=== PATIENT | female | born 1955 | race Caucasian/White ===

== ENCOUNTER → 2017-01-02 | Outpatient (CLI) | payer BC ==
[~2017-01-02] MED LIST: GADOBUTROL 10 ML VIAL IVP ONE
== END ==
LOC: FIMAGING 14:15
PROVIDERS: ATTEND Psychiatry & Neurology Neurology
DX: G35 Multiple sclerosis (principal); M48.02 Spinal stenosis, cervical region; M50.321 Other cervical disc degeneration at C4-C5 level
CPT/HCPCS: A9585

== ENCOUNTER → 2017-03-06 | Outpatient (CLI) | payer BC | LOC: FIMAGING 13:13 | PROVIDERS: ATTEND Obstetrics & Gynecology | DX: Z12.31 Encounter for screening mammogram for malignant neoplasm of breast (principal) | CPT/HCPCS: G0202 ==

== ENCOUNTER 2018-06-16 11:31 | Observation (INO) | payer OTHER ==
--- NOTE | 2018-06-16 11:45 | EDPHY ---
H & P Stated Complaint: CP starting last night Time Seen by Provider: 06/16/18 11:39 - Personal History Tetanus Vaccine Date: 2003 - Medical/Surgical History Hx Asthma: No Hx Chronic Respiratory Disease: No Hx Diabetes: No Hx Cardiac Disease: No Hx Renal Disease: No Hx Cirrhosis: No Hx Alcoholism: No Hx HIV/AIDS: No Hx Splenectomy or Spleen Trauma: No Other PMH: MS, SETH, POTS, HTN, hyperlipidemia - Social History Smoking Status: Never smoked Constitutional: Initial Vital Signs Temperature (C) 36.5 C 06/16/18 11:35 Heart Rate 104 H 06/16/18 11:35 Respiratory Rate 18 06/16/18 11:35 Blood Pressure 176/116 H 06/16/18 11:35 O2 Sat (%) 98 06/16/18 11:35 O2 Delivery Mode Room Air Allergies/Adverse Reactions: metoclopramide [Metoclopramide] Allergy (Severe, Verified 06/16/18 11:33) PSYCHOSIS natalizumab [From TYSABRI] Allergy (Severe, Verified 06/16/18 11:33) DYSPNEA, SYNCOPE, ABNORMAL VITAL SIGNS Butyrophenones Allergy (Intermediate, Verified 06/16/18 11:33) RASH/HIVES levofloxacin [From Levaquin] Allergy (Intermediate, Verified 06/16/18 11:33) Hives interferon beta-1a [From Rebif] Allergy (Mild, Verified 06/16/18 11:33) DECR WBC COUNT cefepime Allergy (Unknown, Verified 06/16/18 13:46) Other-Enter Comments Influenza Virus Vaccines [Influenza Virus Vaccine] Allergy (Unknown, Verified 11:33) interferon muriel (human leuk. derive [Interferon Muriel] Allergy (Unknown, Verified 06/16/18 11:33) DECR WBC COUNT glatiramer acetate [From Copaxone] Allergy (Verified 06/16/18 11:33) SOB & RACING HEART latex [Latex] Allergy (Verified 06/16/18 11:33) CRAIG SKIN Quinolones Allergy (Verified 06/16/18 11:33) Hives sulfamethoxazole [From Septra] Allergy (Verified 06/16/18 11:33) trimethoprim [From Septra] Allergy (Verified 06/16/18 11:33) PAPER TAPE Allergy (Uncoded 06/16/18 11:33) Hives Home Medications: Medication Instructions Recorded Calcium Carbonate [Oyster Shell 1,000 - 1,500 mg PO DAILY 03/20/12 Calcium 500 mg (*)] Cholecalciferol Vit D3 [Vitamin D3 5,000 units PO HS 03/20/12 (*)] DULoxetine [Cymbalta 60 MG (*)] 60 mg PO DAILY 03/20/12 Diazepam [Valium 5 MG (*)] 5 mg PO QID PRN 03/20/12 Docusate Sodium [Colace 100 MG (*)] 100 mg PO DAILY 03/20/12 LORazepam [Ativan (*)] 1 - 2 mg PO DAILY PRN 03/20/12 Levothyroxine [Synthroid 75 mcg 75 mcg PO DAILY06 03/20/12 (*)] MAGNESIUM [Magnesium Oxide 200 mg] 2 - 3 tab PO DAILY 03/20/12 Metoprolol Tartrate [Lopressor 25 12.5 - 25 mg PO DAILY PRN 03/20/12 mg (*)] [place]-3 Fatty Acids/Fish Oil 1,000 units PO HS 03/20/12 [[place] 3 1,000 mg Softgel] Pyridostigmine [place] [Mestinon 180 mg PO HS 03/20/12 Timespan] fentaNYL [Duragesic 50 MCG Patch 50 mcg TD Q72H 03/20/12 (*)] Atorvastatin Calcium [Lipitor 10 10 mg PO HS 06/16/18 mg (*)] DULoxetine [Cymbalta 30 MG (*)] 30 mg PO HS 06/16/18 clonIDINE [Catapres (*)] 0.1 mg PO DAILY@06/16/18 oxyCODONE HCL [Oxycodone HCl] 5 mg PO Q6H PRN 06/16/18 Medical Decision Making - Diagnostics Imaging Results: Imaging Impressions Chest X-Ray 06/16/18 12:43 Impression: 1. No active cardiopulmonary disease seen. Imaging: I viewed and interpreted images myself ED Course/Re-evaluation: CHIEF COMPLAINT: Chest pain HISTORY OF PRESENT ILLNESS: The patient is a 62 y/o female with a history of MS, POTS, and hypertension complaining of chest pain, onset at midnight last night, 12 hours ago. She had a calcium scan several years ago, which was "fine". She denies any further cardiac work up. Staring in October of this year she developed hypertension and hypercholesteremia. She normally feels lethargic towards the end of the week due to MS and tends to lie around a lot. However, last night she felt "hyper" and developed substernal chest pain. Due to these symptoms she took Valium and was able to sleep. She did not have any pain while sleeping. When she woke up this morning, she still had chest pain associated with mild shortness of breath , nausea, and dizziness. She occasionally has shortness of breath due to the MS , but the symptoms feel different today. No headache, abdominal pain, urinary or bowel complaints, numbness, paresthesias, fever. Her father of an OR at 61. Her mother also had atrial fibrillation and due to an OR or stroke. Her siblings do not have any cardiac problems. Her grandfathers in their early 50's from a stroke and OR. REVIEW OF SYSTEMS: A comprehensive 10 system review of systems is otherwise negative aside from the elements mentioned in the history of present illness and medical decision making. PHYSICAL EXAM: HR, BP, O2 Sat, RR. Temp noted General Appearance: Alert, well hydrated, appropriate, and non-toxic appearing. Head: Atraumatic without scalp tenderness or obvious injury Eyes: Pupils equal, round, reactive to light and accommodation, EOMI, no trauma , no injection. Ears: Clear bilaterally, no perforation, normal landmarks Nose: Atraumatic, no rhinorrhea, clear. Throat: There is no erythema or exudates, no lesions, normal tonsils, mucus membranes moist. Neck: Supple, nontender, no lymphadenopathy. Respiratory: No retractions, no distress, no wheezes, and no accessory muscle use. Lungs are clear to auscultation bilaterally. Cardiovascular: Tachycardia with premature atrial contractions, no murmurs, rubs, or gallops. Bilateral carotid, radial, dorsalis pedis, and posterior tibial pulses intact. Good capillary refill all extremities. Gastrointestinal: Abdomen is soft, nontender, non-distended, no masses, no rebound, no guarding, no peritoneal signs. Musculoskeletal: Normal active ROM of all extremities, atraumatic. Neurological: Alert, appropriate, and interactive. The patient has normal DTRs and non-focal cranial nerves, motor, sensory, and cerebellar exam. Skin: No rashes, good turgor, no nodules on palpation. Past medical history: MS, SETH, POTS, hypertension, hyperlipidemia Past surgical history: Denies Family history: Father and grandfather of OR, mother had A-fib Social history: Lives in [place], at bedside, not employed DIAGNOSTICS/PROCEDURES/CRITICAL CARE TIME: EKG: The 12 lead EKG was interpreted by myself as sinus arrhythmia with a rate of 87, RBBB. See hard copy and/or "tracemaster" electronic copy for interpretation. Chest x-ray: No acute findings. DIFFERENTIAL DIAGNOSIS: The differential diagnosis for the patient's chest pain included but was not limited to myocardial ischemia, pulmonary embolus, chest wall pain, pleural inflammation, and pulmonary infectious causes. MEDICAL DECISION MAKING: The patient is a 62 y/o female with a history of MS, POTS, and hypertension presenting with mid-sternal chest pain, onset at midnight last night, 12 hours ago. On exam she has tachycardia with premature atrial contractions. Due to her MS and immobility, I have ordered a D-dimer to rule out a PE or DVT. Labs, chest x-ray, and EKG ordered; 324mg PO Aspirin and 4mg PO Zofran administered. 1149: I reviewed patient's EKG as sinus arrhythmia with a rate of 87, RBBB. 1240: Reassessed patient and discussed EKG findings. I have discussed probable admission due to patient's symptoms and familial history. She is comfortable with plan for admission. Labs still pending. 1243: I reviewed patient's chest x-ray which reveals no acute findings. 1309: Patient has a negative troponin. 1315: I consulted with the hospitalist service, Dr. Russo accepts admission of this patient for her chest pain. - Data Points Laboratory Results: Laboratory Results 06/16/18 12:15 06/16/18 12:15 06/16/18 06/16/18 06/16/18 12:15 12:15 12:15 WBC 4.75 10^3/uL 10^3/uL (3.80-9.50) RBC 5.42 10^6/uL H 10^6/uL (4.18-5.33) Hgb 15.8 g/dL g/dL (12.6-16.3) Hct 45.7 % % (38.0-47.0) MCV 84.3 fL fL (81.5-99.8) MCH 29.2 pg pg (27.9-34.1) MCHC 34.6 g/dL g/dL (32.4-36.7) RDW 12.8 % % (11.5-15.2) Plt Count 236 10^3/uL 10^3/uL (150-400) MPV 9.9 fL fL (8.7-11.7) Neut % (Auto) 48.4 % % (39.3-74.2) Lymph % (Auto) 41.1 % % (15.0-45.0) Treasure % (Auto) 9.5 % % (4.5-13.0) Eos % (Auto) 0.4 % L % (0.6-7.6) Baso % (Auto) 0.4 % % (0.3-1.7) Nucleat RBC Rel Count 0.0 % % (0.0-0.2) Absolute Neuts (auto) 2.30 10^3/uL 10^3/uL (1.70-6.50) Absolute Lymphs (auto) 1.95 10^3/uL 10^3/uL (1.00-3.00) Absolute Monos (auto) 0.45 10^3/uL 10^3/uL (0.30-0.80) Absolute Eos (auto) 0.02 10^3/uL L 10^3/uL (0.03-0.40) Absolute Basos (auto) 0.02 10^3/uL 10^3/uL (0.02-0.10) Absolute Nucleated RBC 0.00 10^3/uL 10^3/uL (0-0.01) Immature Gran % 0.2 % % (0.0-1.1) Immature Gran # 0.01 10^3/uL 10^3/uL (0.00-0.10) Sodium 140 mEq/L mEq/L (135-145) Potassium 3.7 mEq/L mEq/L (3.3-5.0) Chloride 109 mEq/L mEq/L (97-110) Carbon Dioxide 26 mEq/l mEq/l (22-31) Anion Gap 5 mEq/L L mEq/L (8-16) BUN 18 mg/dL mg/dL (7-23) Creatinine 0.6 mg/dL mg/dL (0.6-1.0) Estimated GFR > 60 Glucose 116 mg/dL H mg/dL (70-100) Calcium 9.1 mg/dL mg/dL (8.5-10.4) Total Bilirubin AST ALT Alkaline Phosphatase Troponin I < 0.012 ng/mL ng/mL (0.000-0.034) NT-Pro-B Natriuret Pep 176 pg/mL H pg/mL (0-125) Total Protein Albumin 06/16/18 06/16/18 12:15 12:15 WBC 4.70 10^3/uL 10^3/uL (3.80-9.50) RBC 5.36 10^6/uL H 10^6/uL (4.18-5.33) Hgb 15.9 g/dL g/dL (12.6-16.3) Hct 45.2 % % (38.0-47.0) MCV 84.3 fL fL (81.5-99.8) MCH 29.7 pg pg (27.9-34.1) MCHC 35.2 g/dL g/dL (32.4-36.7) RDW 12.7 % % (11.5-15.2) Plt Count 237 10^3/uL 10^3/uL (150-400) MPV Neut % (Auto) Lymph % (Auto) [place] % (Auto) Eos % (Auto) Baso % (Auto) Nucleat RBC Rel Count Absolute Neuts (auto) Absolute Lymphs (auto) Absolute Monos (auto) Absolute Eos (auto) Absolute Basos (auto) Absolute Nucleated RBC Immature Gran % Immature Gran # Sodium 139 mEq/L mEq/L (135-145) Potassium 3.7 mEq/L mEq/L (3.3-5.0) Chloride 108 mEq/L mEq/L (97-110) Carbon Dioxide 27 mEq/l mEq/l (22-31) Anion Gap 4 mEq/L L mEq/L (8-16) BUN 18 mg/dL mg/dL (7-23) Creatinine 0.6 mg/dL mg/dL (0.6-1.0) Estimated GFR > 60 Glucose 116 mg/dL H mg/dL (70-100) Calcium 9.1 mg/dL mg/dL (8.5-10.4) Total Bilirubin 0.7 mg/dL mg/dL (0.1-1.4) AST 31 IU/L IU/L (14-46) ALT 52 IU/L IU/L (9-52) Alkaline Phosphatase 57 IU/L IU/L (38-126) Troponin I < 0.012 ng/mL ng/mL (0.000-0.034) NT-Pro-B Natriuret Pep Total Protein 6.4 g/dL g/dL (6.3-8.2) Albumin 3.9 g/dL g/dL (3.5-5.0) Medications Given: Discontinued Medications Aspirin (Aspirin) 324 mg PO EDNOW ONE Stop: 06/16/18 12:43 Last Admin: 06/16/18 12:49 Dose: 324 mg Ondansetron HCl (Zofran Odt) 4 mg PO EDNOW ONE Stop: 06/16/18 12:51 Last Admin: 06/16/18 12:55 Dose: 4 mg Departure - Departure Disposition: [facility] Inpatient Acute Clinical Impression: Tachycardia Chest pain Qualifiers: Chest pain type: other chest pain Qualified Code(s): R07.89 - Other chest pain Condition: Fair Report Scribed for: Fabiano Kemp Report Scribed by: Lulu Maldonado Date of Report: 06/16/18 Time of Report: 11:45
[2018-06-16] MEDS ORDERED: ASPIRIN 81 MG CHEWABLE TAB PO ONE (12:42)
[2018-06-16] MEDS ORDERED: ONDANSETRON DISINTEGRATING 4 MG TAB PO ONE (12:50)
[2018-06-16 13:08] LABS: PLATELET COUNT 236 10^3/uL (150-400)
[2018-06-16] MEDS ORDERED: ONDANSETRON 4 MG/2 ML VIAL IVP PRN (14:03)
[2018-06-16] MEDS ORDERED: ONDANSETRON DISINTEGRATING 4 MG TAB PO PRN (14:03)
[2018-06-16] MEDS ORDERED: LORazepam 1 MG TAB PO PRN (14:06)
[2018-06-16] MEDS ORDERED: DIAZEPAM 5 MG TAB PO PRN (14:06)
[2018-06-16] MEDS ORDERED: oxyCODONE IR 5 MG TAB PO PRN (14:06)
[2018-06-16] MEDS ORDERED: METOPROLOL TARTRATE 25 MG TAB PO PRN (14:06)
[2018-06-16] MEDS ORDERED: NS 1,000 ML IV SCH (14:15)
[2018-06-16] MEDS ORDERED: fentaNYL 50 MCG PATCH TD SCH (14:15)
--- NOTE | 2018-06-16 14:43 | GHP ---
DATE OF ADMISSION: 06/16/2018 HISTORY OF PRESENT ILLNESS: Ms. Gupta is a 62-year-old female with a history of multiple sclerosis , who presents with chest pain, it started this morning in the centralized chest. She clutches her f ist over her chest, describes a pressure, it does not radiate, it is not associated with diaphoresis. She notes she has some vague shortness of breath. She remains active, swimming, and she said she h ad noticed no decrement in her exertional tolerance and no recent exertional chest pain. She does ness ve a family history of coronary disease including father of an SC at age 61, her mother had atri al fibrillation. She has not had recent palpitations. She has high cholesterol and she has recently been started on a statin. She also has hypertension and takes a beta sidney. She also has POTS. She has not had fever, chills, cough, sputum, nausea, vomiting, diarrhea. She does not believe that this is an esophageal problem. She has no lower extremity edema and does not have a pleuritic compon ent to her pain. She recently drove to and from [place], [place], with her . REVIEW OF SYSTEMS: A complete 10-point review of systems conducted, negative except as noted in the HPI. PAST MEDICAL HISTORY: Multiple sclerosis with occasional flares and occasional steroid use. Neurolo gist is Dr. Norman. Hyperlipidemia, hypertension, POTS, chronic pain, depression. ALLERGIES: Metoclopramide, levofloxacin, butyrophenones, natalizumab, cefepime, interferon beta 1A, flu vaccine, glatiramer, latex, quinolones, trimethoprim, paper tape. HOME MEDICATIONS: Atorvastatin, calcium carbonate, vitamin D3, clonidine, diazepam, docusate, duloxe luz, fentanyl patch, levothyroxine, lorazepam, magnesium, metoprolol, fish oil, oxycodone, pyridosti gmine. SOCIAL HISTORY: Rare alcohol. No tobacco. Lives in [place]. . FAMILY HISTORY: As in the HPI. PHYSICAL EXAMINATION: VITAL SIGNS: Temp 36.5, blood pressure 176/116, now 135/85, pulse in the low 100, breathing 18 times a minute, 98% on room air. GENERAL: No acute distress. HEENT: Sclerae ani cteric. Oropharynx clear. Mucous membranes are moist. NECK: Supple. No lymphadenopathy or JVD. LUNGS: Clear to auscultation bilaterally. HEART: S1, S2. Borderline tachycardic. ABDOMEN: Soft, nontender, nondistended. LOWER EXTREMITIES: No edema. Calves are nontender. SKIN: Without rash. NEUROLOGIC: Nonfocal. LABORATORY DATA: Sodium 139, potassium 3.7, chloride 108, bicarb 27, BUN 18, creatinine 0.6, glucose 116. LFTs normal. Troponin less than 0.012. BNP is 176, slightly high. D-dimer is 0.36. White c ount is 4.75, hematocrit 45, platelets 236,000. Chest x-ray interpreted by me shows no acute cardiop ulmonary disease. EKG shows right bundle branch block pattern, which is old per the patient, rate is at 87. She has normal axis and intervals. There is a biphasic T-wave in lead 3 and inverted T-wave in lead 2, but otherwise no ST or T-wave changes. I discussed the case Dr. Fabiano Kemp. ASSESSMENT: This is a 62-year-old female with family history of coronary artery disease, hypertensio n, hyperlipidemia presents with chest pain. 1. Chest pain. Differential acute angina, ACS, pulmonary embolism. She has a negative D-dimer, whi ch for now effectively rules out PE. I do feel like her risk given her sinus tach is probably not lo w. 2. Regarding her family history of coronary disease, we will cycle troponins and perform exercise tr eadmlily with nuclear imaging given her right bundle branch block pattern. She believes that she will be able to exercise on a treadmill. I have considered esophageal complaints, we will not giovani that for now. 3. Multiple sclerosis. We will continue her Mestinon. 4. Chronic pain. Continue her medications. 5. Postural orthostatic tachycardia. I suspect this accounts for her tachycardia, will follow. 6. Query pulmonary embolism. I think if the patient has progressive tachycardia without explanation , then CT scan should be performed, we will hold off on it for now. DISPOSITION: Observation status. /[id number]/MODL
--- NOTE | 2018-06-16 15:00 | CPEKG ---
Test Reason : OPEN Blood Pressure : / mmHG Vent. Rate : 087 BPM Atrial Rate : 094 BPM P-R Int : 140 ms QRS Dur : 128 ms QT Int : 401 ms P-R-T Axes : 056 064 034 degrees QTc Int : 483 ms Sinus arrhythmia Right bundle branch block Confirmed by Fabiano Kemp ([id number]) on 06/16/2018 2:59:47 PM Referred By: Confirmed By:Fabiano Kemp
[2018-06-16] MEDS: ACETAMINOPHEN 325 MG TAB PO PRN ×2 (15:45→21:57)
[2018-06-16] MEDS ORDERED: PYRIDOSTIGMINE BROMIDE 180 MG TAB.ER PO SCH (21:00)
[2018-06-16] MEDS ORDERED: ATORVASTATIN CALCIUM 10 MG TAB PO SCH (21:00)
[2018-06-16] MEDS ORDERED: OMEGA-3 FATTY ACIDS 1,000 MG CAP PO SCH (21:00)
[2018-06-16] MEDS ORDERED: DULoxetine 30 MG CAP PO SCH (21:00)
[2018-06-16] MEDS ORDERED: CHOLECALCIFEROL VIT D3 1,000 UNITS TAB PO SCH (21:00)
[2018-06-17] MEDS ORDERED: LEVOTHYROXINE 75 MCG TAB PO SCH (06:00)
[2018-06-17] MEDS ORDERED: CALCIUM CARBONATE 500 MG TAB PO SCH (09:00)
[2018-06-17] MEDS ORDERED: DOCUSATE SODIUM 100 MG CAP PO SCH (09:00)
[2018-06-17] MEDS ORDERED: fentaNYL 12 MCG PATCH TD SCH ×2 (09:00→21:00)
[2018-06-17] MEDS ORDERED: MAGNESIUM OXIDE 400 MG TAB PO SCH (09:00)
[2018-06-17] MEDS ORDERED: DULoxetine 60 MG CAP PO SCH (09:00)
[2018-06-17] MEDS ORDERED: REGADENOSON 0.4 MG/5 ML SYR IVP ONE (09:51)
[2018-06-17 11:36] VITALS: BP 120/82
--- NOTE | 2018-06-17 11:58 | HOSPPROG ---
Hospitalist Progress Note Assessment/Plan: 62 yo F w MS, cp neg eval home today see dc summary Subjective: neg stress. neg tele Objective: Vital Signs Temp Pulse Resp BP Pulse Ox 36.8 C 89 19 120/82 H 91 L 06/17/18 11:35 06/17/18 11:35 06/17/18 11:35 06/17/18 11:35 06/17/18 11:35 06/16/18 06/17/18 06/18/18 05:59 05:59 05:59 Intake Total 1600 250 Balance 1600 250 - Physical Exam Constitutional: no apparent distress, appears nourished Eyes: PERRL, anicteric sclera Ears, Nose, Mouth, Throat: moist mucous membranes, hearing normal Cardiovascular: regular rate and rhythym, no murmur, rub, or gallop Respiratory: no respiratory distress, no rales or rhonchi Gastrointestinal: normoactive bowel sounds, soft, non-tender abdomen Genitourinary: no bladder fullness, No yates in urethra Skin: warm, normal color Musculoskeletal: full muscle strength, no muscle tenderness Neurologic: AAOx3 ICD10 Worksheet Patient Problems: Problems Problem Status Onset Chest pain Acute Tachycardia Acute Clostridium difficile infection Active Multiple sclerosis Active
--- NOTE | 2018-06-17 13:10 | ASMTCMCOM ---
CM Note CM Note Notes: Patient admitted via ED for c/o chest pain. Medically cleared at this point for discharge to home. No needs identified. CM available should needs arise. Plan: DC to home independently. Date Signed: 06/17/2018 01:10 PM Electronically Signed By:Graciela Morrell RN
--- NOTE | 2018-06-17 13:26 | GDS ---
DISCHARGE DIAGNOSES: 1. Chest pain. 2. Hypertension. 3. Multiple sclerosis. HOSPITAL COURSE: Please see admission History and Physical by Dr. Zain Russo. The patient was a dmitted with chest pain. She had a negative D-dimer. She had a family history of coronary disease. She had serial negative troponins, no events on telemetry, had an exercise treadmill with no evidenc e of ischemia on nuclear images. She is discharged home. Aspirin was added to her regimen given her family history. /[id number]/MODL
--- NOTE | 2018-06-17 15:07 | CPIP ---
DATE OF PROCEDURE: 06/17/2018 PROCEDURE PERFORMED: Exercise nuclear treadmill stress test. INDICATION FOR STRESS TEST: Chest pain. BRIEF SUMMARY: The patient is a pleasant 62-year-old old female with a known history of multiple scl erosis, who presented to [facility] yesterday after ongoing complaints of chest pain for over 24 hours. She continues to have chest pain, which she describes as 2/10 prior to starting t he treadmill. She has no ischemic changes under ECG with underlying sinus rhythm with right bundle b ranch block. Baseline vital signs are heart rate of 76, in sinus rhythm with blood pressure of 138/80. The patient was able to exercise on standard Avinash protocol for a total of 7 minutes. She achieved a peak heart rate of 175 beats per minute representing 109% of her maximum predicted heart rate, peak blood pressure 174/80. She had no ischemic changes with exercise. She states her chest pain did inc rease to 3/10, which decreased to 2/10 with rest. Blood pressure response to exercise was appropriat e. She was injected at 6 minutes with Tc 99 and sestamibi. Nuclear imaging images are pending. CONCLUSION: 1. No evidence of ischemic changes during exercise treadmill stress test. 2. Excellent exercise performance. 3. Appropriate blood pressure response. 4. Nuclear imaging pending. /[id number]/MODL
== END 2018-06-17 14:32 | disposition home or self-care (01) ==
LOC: F2W 16:34
PROVIDERS: ADMIT Internal Medicine; ATTEND Internal Medicine
DX: R07.9 Chest pain, unspecified (principal); I10 Essential (primary) hypertension; G35 Multiple sclerosis; G47.33 Obstructive sleep apnea (adult) (pediatric); I49.8 Other specified cardiac arrhythmias; E78.5 Hyperlipidemia, unspecified
CPT/HCPCS: 36591; 71045; 78451; 93005; 93017; 96361; 96374; 97162; 99285; A9500; G0378; J1642; J2270; J2785

== ENCOUNTER 2018-08-16 11:07 | Day surgery (SDC) | payer OTHER ==
[2018-08-16] MEDS ORDERED: LR 1,000 ML IV SCH (11:32)
[2018-08-16] MEDS ORDERED: ceFAZolin 2 GM/DEXTROSE 100 ML IV ONE (11:32)
[2018-08-16] MEDS ORDERED: LR 1,000 ML IV ONE ×2 (11:33→11:40)
[2018-08-16] MEDS ORDERED: LIDOCAINE 1% 2 ML INJ ID PRN (11:40)
--- NOTE | 2018-08-16 11:51 | PDHPUP ---
History & Physical Update H&P update statement: This history and physical update is based on an assessment of the patient which was completed after admission or registration (within 24 hours), but prior to the surgery/procedure. H&P update: H&P reviewed & patient examined, no change in patient's condition since H&P completed
[2018-08-16] MEDS ORDERED: PROPOFOL 200 MG/20 ML VIAL ONE ×2 (12:05→13:05)
[2018-08-16] MEDS ORDERED: fentaNYL 100 MCG/2 ML INJ ONE ×4 (12:05→15:04)
[2018-08-16] MEDS ORDERED: BUPIVACAINE 0.5% 30 ML SDV ONE (12:13)
[2018-08-16] MEDS ORDERED: EPINEPHrine 1 MG/ML INJ ONE ×2 (12:13→12:52)
[2018-08-16] MEDS ORDERED: MIDAZOLAM 2 MG/2 ML VIAL ONE (12:15)
[2018-08-16] MEDS ORDERED: MIDAZOLAM 2 MG/2 ML VIAL IVP ONE (12:18)
--- NOTE | 2018-08-16 12:18 | PDANEPAE ---
ANE History of Present Illness right shoulder arthroscopy ANE Past Medical History - Cardiovascular History Hx Hypertension: Yes Hx Arrhythmias: No Hx Chest Pain: No Hx Coronary Artery / Peripheral Vascular Disease: No Hx CHF / Valvular Disease: No Hx Palpitations: No Cardiovascular History Comment: METOPROLOL. POTS - Pulmonary History Hx COPD: No Hx Asthma/Reactive Airway Disease: No Hx Recent Upper Respiratory Infection: No Hx Oxygen in Use at Home: Yes O2 in Use at Home (L/minute): 3L O2 NOC Hx Sleep Apnea: Yes Sleep Apnea Screening Result - Last Documented: Positive Pulmonary History Comment: SETH POSITIVE BIPAP - Neurologic History Hx Cerebrovascular Accident: No Hx Seizures: No Hx Dementia: No Neurologic History Comment: PT HAS MS - Endocrine History Hx Diabetes: No Endocrine History Comment: HYPOTHYROID - Renal History Hx Renal Disorders: Yes Renal History Comment: HX OF UTI RELATED TO MS. PYLONEPHRITIS R/T MS - Liver History Hx Hepatic Disorders: No - Neurological & Psychiatric Hx Hx Neurological and Psychiatric Disorders: No - Cancer History Hx Cancer: Yes Cancer History Comment: BASAL CELL CARCINOMA - Congenital Disorder History Hx Congenital Disorders: No - GI History Hx Gastrointestinal Disorders: No Gastrointestinal History Comment: REFLUX - Other Health History Other Health History: MULTIPLE SCLEROSIS. FATIGUE. CHRONIC BACK PAIN FROM MS. CHRONIC PELVIC PAIN - Chronic Pain History Chronic Pain: Yes (BACK, PELVIC FLOOR) - Surgical History Prior Surgeries: L RUBY. APPENDECTOMY. LEFT AND RIGHT KNEE ARTHROSCOPIC SURGERIES. COLONOSCOPY 2007. EGD 2007. HYSTERECTOMY. LEFT SHOULDER SURGERY. SPINAL FUSION L4-5. TOE SURGERY RIGHT AND BUNIONECTOMY ANE Review of Systems Review of Systems: - Exercise capacity METS (RN): 4 METS ANE Patient History - Allergies Allergies/Adverse Reactions: metoclopramide [Metoclopramide] Allergy (Severe, Verified 06/16/18 11:33) PSYCHOSIS natalizumab [From TYSABRI] Allergy (Severe, Verified 06/16/18 11:33) DYSPNEA, SYNCOPE, ABNORMAL VITAL SIGNS Butyrophenones Allergy (Intermediate, Verified 06/16/18 11:33) RASH/HIVES levofloxacin [From Levaquin] Allergy (Intermediate, Verified 06/16/18 11:33) Hives interferon beta-1a [From Rebif] Allergy (Mild, Verified 06/16/18 11:33) DECR WBC COUNT cefepime Allergy (Unknown, Verified 06/16/18 13:46) Other-Enter Comments Influenza Virus Vaccines [Influenza Virus Vaccine] Allergy (Unknown, Verified 11:33) interferon muriel (human leuk. derive [Interferon Muriel] Allergy (Unknown, Verified 06/16/18 11:33) DECR WBC COUNT glatiramer acetate [From Copaxone] Allergy (Verified 06/16/18 11:33) SOB & RACING HEART latex [Latex] Allergy (Verified 06/16/18 11:33) CRAIG SKIN Quinolones Allergy (Verified 06/16/18 11:33) Hives sulfamethoxazole [From Septra] Allergy (Verified 06/16/18 11:33) trimethoprim [From Septra] Allergy (Verified 06/16/18 11:33) PAPER TAPE Allergy (Uncoded 06/16/18 11:33) Hives - Home Medications Home medications: home medication list seen and reviewed Home Medications: Calcium Carbonate [Oyster Shell Calcium 500 mg (*)] 1,000 - 1,500 mg PO DAILY [Last Taken 08/13/18] Cholecalciferol Vit D3 [Vitamin D3 (*)] 5,000 units PO HS 03/20/12 [Last Taken 08/13/18] DULoxetine [Cymbalta 60 MG (*)] 60 mg PO DAILY 03/20/12 [Last Taken 06/16/18] Diazepam [Valium 5 MG (*)] 5 mg PO QID PRN 03/20/12 [Last Taken 07/26/18] Docusate Sodium [Colace 100 MG (*)] 100 mg PO DAILY 03/20/12 [Last Taken Unknown ] LORazepam [Ativan (*)] 1 - 2 mg PO DAILY PRN 03/20/12 [Last Taken 06/17/18] Levothyroxine [Synthroid 75 mcg (*)] 75 mcg PO DAILY06 03/20/12 [Last Taken ] MAGNESIUM [Magnesium Oxide 200 mg] 2 - 3 tab PO DAILY 03/20/12 [Last Taken 08/15] Metoprolol Tartrate [Lopressor 25 mg (*)] 12.5 - 25 mg PO DAILY PRN 03/20/12 [ Last Taken 08/15/18] [place]-3 Fatty Acids/Fish Oil [[place] 3 1,000 mg Softgel] 1,000 units PO HS [Last Taken 08/15/18] Pyridostigmine [place] [Mestinon Timespan] 180 mg PO HS 03/20/12 [Last Taken ] Atorvastatin Calcium [Lipitor 10 mg (*)] 10 mg PO HS 06/16/18 [Last Taken ] DULoxetine [Cymbalta 30 MG (*)] 30 mg PO HS 06/16/18 [Last Taken 08/15/18] celeCOXIB [Celebrex (*)] 200 mg PO DAILY 06/16/18 [Last Taken 08/15/18] clonIDINE [Catapres (*)] 0.1 mg PO DAILY@06/16/18 [Last Taken 08/16/18] fentaNYL [Duragesic 12 MCG Patch (*)] 12 mcg TD Q48H 06/16/18 [Last Taken ] oxyCODONE HCL [Oxycodone HCl] 5 mg PO Q6H PRN 06/16/18 [Last Taken 08/16/18] tiZANidine HCL [Zanaflex] 4 mg PO HS 06/16/18 [Last Taken 08/15/18] - NPO status NPO Since - Liquids (Date): 08/16/18 NPO Since - Liquids (Time): 10:30 NPO Since - Solids (Date): 08/15/18 NPO Since - Solids (Time): 19:00 - Smoking Hx Smoking Status: Never smoked - Family Anes Hx Family Hx Anesthesia Complications: NONE ANE Labs/Vital Signs - Vital Signs Blood Pressure: 156/97 Heart Rate: 98 Respiratory Rate: 16 O2 Sat (%): 95 Height: 167.64 cm Weight: 77.111 kg ANE Physical Exam - Airway Neck exam: FROM Mallampati Score: Class 2 Mouth exam: normal dental/mouth exam - Pulmonary Pulmonary: no respiratory distress - Cardiovascular Cardiovascular: regular rate and rhythym - ASA Status ASA Status: III ANE Anesthesia Plan Anesthesia Plan: GA w LMA Regional Anesthesia: interscalene BP NB, POPC/PSR
[2018-08-16] MEDS ORDERED: oxyCODONE IR 5 MG TAB PO PRN (13:42)
[2018-08-16] MEDS ORDERED: LR 500 ML IV PRN (13:42)
[2018-08-16] MEDS ORDERED: NALOXONE HCL 0.4 MG/ML INJ IVP PRN (13:42)
[2018-08-16] MEDS ORDERED: ALBUTEROL 3 ML DEYVIAL IH PRN (13:42)
[2018-08-16] MEDS ORDERED: ONDANSETRON 4 MG/2 ML VIAL IVP PRN (13:42)
[2018-08-16] MEDS ORDERED: HYDROmorphONE/DILAUDID 2 MG/ML INJ IVP PRN (13:42)
[2018-08-16] MEDS ORDERED: DIAZEPAM 5 MG/ML 1 ML SYR IVP PRN (13:42)
[2018-08-16] MEDS ORDERED: ACETAMINOPHEN 500 MG TAB PO PRN (13:42)
--- NOTE | 2018-08-16 13:42 | POSTANESTH ---
Post Anesthetic Evaluation Cardiovascular Status: Normal, Stable Respiratory Status: Normal, Stable Level of Consciousness/Mental Status: Can Participate in Eval, Mildly Sleepy, Arousable Pain Control: Adequate, Prn Tx Ordered Nausea/Vomiting Control: Adequate, Prn Tx Ordered Complications Possibly Related to Anesthesia: None Noted
[2018-08-16] MEDS: BUPIVACAINE 0.5% 30 ML SDV ONE ×2 (13:51→14:03)
[2018-08-16] MEDS ORDERED: DEXAMETHASONE 4 MG/ML VIAL ONE (13:57)
[2018-08-16] MEDS ORDERED: LIDOCAINE 2% 100 MG/5 ML SYR ONE ×2 (13:57)
[2018-08-16] MEDS ORDERED: ONDANSETRON 4 MG/2 ML VIAL ONE (13:57)
[2018-08-16] MEDS ORDERED: KETOROLAC 30 MG/1 ML SDV ONE (13:57)
--- NOTE | 2018-08-16 14:34 | POSTOPPROG ---
Post Op Note Date of Operation: 08/16/18 Surgeon: Alma Finnegan Best Second Jobs: Cindy Durham PA-C Anesthesiologist: Dr. Nguyen Anesthesia: GET(General Endotracheal) Pre-op Diagnosis: right shoulder pain, impingement Post-op Diagnosis: right shoulder subacromial impingement, rotator cuff tear Indication: right shoulder pain Procedure: R shoulder SAD, DCE, debridement, RCR, biceps tenotomy Inf/Abcess present in the surg proc area at time of surgery?: No EBL: Minimal Complications: none
--- NOTE | 2018-08-16 14:39 | SOAPPROG ---
SOAP Progress Note Assessment/Plan: Assessment/Plan: 62y/o female s/p right shoulder SAD, DCE, debridement, biceps tenotomy, rotator cuff repair - stable and doing well - has prescriptions for post-operative pain management - sling at all times, no shoulder movement - follow-up in 7 days - dc when PACU criteria met, call with any issues or concerns 08/16/18 14:38 Subjective: Having mild shoulder pain Objective: Vital Signs Temp Pulse Resp BP Pulse Ox 36.8 C 98 16 156/97 H 95 08/16/18 11:57 08/16/18 12:18 08/16/18 12:18 08/16/18 12:18 08/16/18 12:18 waking from anesthesia, VSS, no distress EOMi, face symmetric incisions clean, dressed ICD10 Worksheet Patient Problems: Problems Problem Status Onset Clostridium difficile infection Active Multiple sclerosis Active Chest pain Acute Tachycardia Acute
[2018-08-16] MEDS: fentaNYL 100 MCG/2 ML INJ IVP PRN ×2 (14:50→15:05)
--- NOTE | 2018-08-16 15:30 | GOP ---
DATE OF OPERATION: 08/16/2018 SURGEON: Alma Finnegan MD GROCERY CHECKER: Cindy Durham, LUIS M ANESTHESIA: General with interscalene block. PREOPERATIVE DIAGNOSIS: Impingement syndrome with acromioclavicular arthritis and partial thickness rotator cuff tear, right shoulder. POSTOPERATIVE DIAGNOSIS: Impingement syndrome with acromioclavicular arthritis and partial thickness rotator cuff tear, right shoulder, with superior labrum anterior and posterior tear and chondral les ion, humeral head, full-thickness rotator cuff tear, right shoulder. PROCEDURE PERFORMED: Arthroscopy, arthroscopic debridement of large superior labrum anterior and pos terior (SLAP) tear and partial thickness subscapularis tear, chondral lesion of the humeral head; bic eps tenotomy, subacromial decompression, distal clavicle excision, arthroscopic rotator cuff repair, right shoulder. FINDINGS: A diagnostic arthroscopy of the right shoulder was performed with the following findings. The patient had normal articular cartilage on the majority of the glenoid. There was an area on the inferior and anterior aspect of the glenoid where there was significant thinning of the articular ca rtilage but no full-thickness loss. There was also a large area measuring approximately 3 x 3 cm on the humeral head with near full-thickness loss of the articular cartilage. This appeared to be postt raumatic as the articular cartilage in the surrounding area was normal. The labrum was inspected and the patient had significant attenuation of the superior labrum at the biceps anchor. This extended posteriorly and anteriorly from the 10 o'clock to the 2 o'clock position. There was instability of t he biceps anchor. The biceps tendon was released. Debridement of the superior labrum was performed. The labrum was trimmed back to a stable rim. The subscapularis was also inspected and there was at tenuation and partial thickness tearing of the superior 10-20 percent of the fibers. This was debrid ed with a shaver. The loose flaps of articular cartilage around the area of cartilage loss on the hu meral head were debrided with a shaver as well. The labrum extending from the 2 o'clock position inf eriorly around the 6 o'clock and back to the 10 o'clock position was normal. There were multiple loo se bodies which were removed with a shaver. The supraspinatus tendon was then inspected and there wa s a small full-thickness tear in the midportion of the supraspinatus tendon. This area was debrided. The scope was then placed in the subacromial space and a lateral working portal was created. [facility] er inspection of the rotator cuff was performed from this view. Extensive debridement of the subacro mial bursa was performed. The punctate area of full thickness rotator cuff tearing was identified. This was also debrided from the bursal surface. The Scorpion suture passer was then used to pass a s crystal-to-side suture through the area of full-thickness tear. A #2 FiberWire was utilized to repair th e area. An excellent [id number] repair of the torn tissue was obtained. The patient also had a la rge anterolateral subacromial spur which was removed with a bur. Approximately 7-8 mm of the anterol ateral acromion was removed. This was carried across to the AC joint. The patient had a large spur on the inferior aspect of the AC joint, so the distal 1 cm of the clavicle was also excised. ESTIMATED BLOOD LOSS: Minimal. DESCRIPTION OF PROCEDURE: The patient was taken the operating room and placed in a supine position o n the operating table. Following induction of adequate general inhalation anesthesia, the shoulder a nd arm were prepped and draped in the usual sterile manner. The patient received 2 g of IV Ancef. T he arthroscope was introduced through a posterior portal and the instrumentation through an anterior portal. A diagnostic arthroscopy was performed with the above-noted findings. Our attention was tur vira first to the pathology in the shoulder joint. Extensive debridement of the intraarticular struct ures was performed. The biceps tenotomy was also performed. Once this was completed, the scope was placed in the subacromial space and the lateral working portal was created. Further debridement of t he subacromial space was performed and the undersurface of the acromion was cleared. The bur was ins erted and a subacromial decompression was performed. The tear in the rotator cuff was identified and a [id number] repair was performed using the Scorpion suture passer and a single #2 FiberWire. The obhk-nn-sild repair was tied and excellent repair of the tissue was obtained. The distal 1 cm of th e clavicle was then excised. At the completion of the procedure, the instrumentation was removed and the portals were closed using 4-0 nylon in interrupted fashion. Sterile dressings were applied. Th e patient tolerated the procedure well and there were no complications. Estimated blood loss minimal . Final sponge and needle counts were correct. The patient was transported to the recovery room in good condition. /[id number]/MODL
[2018-08-16] MEDS ORDERED: ACETAMINOPHEN 500 MG TAB ONE (15:45)
[2018-08-16 16:04] VITALS: BP 129/80
== END 2018-08-16 16:19 | disposition home or self-care (01) ==
LOC: FSGY 11:07
PROVIDERS: ATTEND Orthopaedic Surgery
PROC: 0RNJ4ZZ Release Right Shoulder Joint, Percutaneous Endoscopic Approach (ICD-10-PCS; 2018-08-16)
PROC: 0PB94ZZ Excision of Right Clavicle, Percutaneous Endoscopic Approach (ICD-10-PCS; 2018-08-16)
PROC: 0LQ14ZZ Repair Right Shoulder Tendon, Percutaneous Endoscopic Approach (ICD-10-PCS; principal; 2018-08-16 13:30)
DX: M75.111 Incomplete rotator cuff tear or rupture of right shoulder, not specified as traumatic (principal); M75.41 Impingement syndrome of right shoulder; M19.011 Primary osteoarthritis, right shoulder; S43.431A Superior glenoid labrum lesion of right shoulder, initial encounter; X58.XXXA Exposure to other specified factors, initial encounter; M75.51 Bursitis of right shoulder; E03.9 Hypothyroidism, unspecified; G47.33 Obstructive sleep apnea (adult) (pediatric); I10 Essential (primary) hypertension; G35 Multiple sclerosis; G89.29 Other chronic pain; Z79.891 Long term (current) use of opiate analgesic; Z79.899 Other long term (current) drug therapy
CPT/HCPCS: J0171; J0690; J1100; J1885; J2001; J2250; J2405; J2704; J3010

== ENCOUNTER → 2018-10-04 | Outpatient (CLI) | payer OTHER | LOC: FIMAGING 12:38 | PROVIDERS: ATTEND Obstetrics & Gynecology | DX: Z12.31 Encounter for screening mammogram for malignant neoplasm of breast (principal) ==

== ENCOUNTER → 2018-10-20 | Outpatient (CLI) | payer OTHER | LOC: FCPNEURO 23:23 | PROVIDERS: ATTEND Psychiatry & Neurology Sleep Medicine | DX: G47.33 Obstructive sleep apnea (adult) (pediatric) (principal) ==

== ENCOUNTER → 2018-11-13 | Outpatient (CLI) | payer OTHER | LOC: FIMAGING 07:23 | PROVIDERS: ATTEND Psychiatry & Neurology Neurology | DX: G35 Multiple sclerosis (principal) ==

== ENCOUNTER 2018-11-28 09:59 | Emergency (ER) | payer OTHER ==
[2018-11-28] MEDS ORDERED: NS 1,000 ML IV ONE (10:16)
[2018-11-28 10:27] LABS: PLATELET COUNT 287 10^3/uL (150-400)
[2018-11-28] MEDS ORDERED: POTASSIUM CL 20 MEQ PKT PO ONE (12:26)
[2018-11-28] MEDS ORDERED: POTASSIUM CL 20 MEQ TAB PO ONE (12:32)
--- NOTE | 2018-11-28 13:47 | EDPHY ---
H & P Time Seen by Provider: 11/28/18 10:09 HPI/ROS: CHIEF COMPLAINT: Right-sided numbness, chest pain, multiple complaints. HISTORY OF PRESENT ILLNESS: Patient has history of MS and has been on stress dose steroids recently and is currently on a taper. She presents with multiple concerns. She feels her speech is slurred. She feels that she has had some right-sided numbness, perhaps more than usual, since about 8:00 a.m.. She also describes blurry vision, dizziness, pain all over. In addition to these symptoms she states she has had some substernal chest pain on and off for 3-4 weeks. She states she has autonomic instability and her heart rate has been elevated at times. She denies fever. She denies chills. She has had no vomiting or diarrhea. She has had no dysuria. She states she has taken her medications as normal. She was seen in June of 2018 at this facility for chest pain and had a stress test at that time. She has no cough and denies shortness of breath. REVIEW OF SYSTEMS: Constitutional: No fever, no chills. Eyes: No discharge. ENT: No sore throat. Cardiovascular: Per HPI Respiratory: No cough, no shortness of breath. Gastrointestinal: No abdominal pain, no vomiting. Genitourinary: No dysuria. Musculoskeletal: Diffuse pain. Skin: No rashes. Neurological: Some headache General Appearance: Alert, no distress. Eyes: Pupils equal and round no pallor or injection. ENT, Mouth: Mucous membranes moist. Respiratory: There are no retractions, lungs are clear to auscultation. Cardiovascular: Tachycardic, normal S1-S2. No murmurs rubs or gallops. Gastrointestinal: Abdomen is soft and nontender, no masses, bowel sounds normal. Neurological: Speech slurred intermittently, otherwise awake, alert, oriented x3. Cranial nerves intact. Normal strength sensation upper and lower extremities. No clonus. Skin: Warm and dry, no rashes. Musculoskeletal: Neck is supple nontender. Extremities are symmetrical, full range of motion, no edema. Psychiatric: Patient is oriented X 3, there is no agitation. Medical/surgical history: MS, SETH, pots, hypertension, hyperlipidemia, spinal surgery, chronic pain, depression, right bundle branch block. Social history: Denies tobacco, uses cannabis. Smoking Status: Never smoked Constitutional: Initial Vital Signs Heart Rate 155 H 11/28/18 10:04 Respiratory Rate 16 11/28/18 10:04 Blood Pressure 164/104 H 11/28/18 10:04 O2 Sat (%) 96 11/28/18 10:04 O2 Delivery Mode Room Air Allergies/Adverse Reactions: metoclopramide [Metoclopramide] Allergy (Severe, Verified 06/16/18 11:33) PSYCHOSIS natalizumab [From TYSABRI] Allergy (Severe, Verified 06/16/18 11:33) DYSPNEA, SYNCOPE, ABNORMAL VITAL SIGNS Butyrophenones Allergy (Intermediate, Verified 06/16/18 11:33) RASH/HIVES levofloxacin [From Levaquin] Allergy (Intermediate, Verified 06/16/18 11:33) Hives interferon beta-1a [From Rebif] Allergy (Mild, Verified 06/16/18 11:33) DECR WBC COUNT cefepime Allergy (Unknown, Verified 06/16/18 13:46) Other-Enter Comments Influenza Virus Vaccines [Influenza Virus Vaccine] Allergy (Unknown, Verified 11:33) interferon mruiel (human leuk. derive [Interferon Muriel] Allergy (Unknown, Verified 06/16/18 11:33) DECR WBC COUNT glatiramer acetate [From Copaxone] Allergy (Verified 06/16/18 11:33) SOB & RACING HEART latex [Latex] Allergy (Verified 06/16/18 11:33) CRAIG SKIN Quinolones Allergy (Verified 06/16/18 11:33) Hives sulfamethoxazole [From Septra] Allergy (Verified 06/16/18 11:33) trimethoprim [From Septra] Allergy (Verified 06/16/18 11:33) PAPER TAPE Allergy (Uncoded 06/16/18 11:33) Hives Home Medications: Medication Instructions Recorded Calcium Carbonate [Oyster Shell 1,000 - 1,500 mg PO DAILY 03/20/12 Calcium 500 mg (*)] Cholecalciferol Vit D3 [Vitamin D3 5,000 units PO HS 03/20/12 (*)] DULoxetine [Cymbalta 60 MG (*)] 60 mg PO DAILY 03/20/12 Diazepam [Valium 5 MG (*)] 5 mg PO QID PRN 03/20/12 Docusate Sodium [Colace 100 MG (*)] 100 mg PO DAILY 03/20/12 LORazepam [Ativan (*)] 1 - 2 mg PO DAILY PRN 03/20/12 Levothyroxine [Synthroid 75 mcg 75 mcg PO DAILY06 03/20/12 (*)] MAGNESIUM [Magnesium Oxide 200 mg] 2 - 3 tab PO DAILY 03/20/12 Metoprolol Tartrate [Lopressor 25 12.5 - 25 mg PO DAILY PRN 03/20/12 mg (*)] [place]-3 Fatty Acids/Fish Oil 1,000 units PO HS 03/20/12 [[place] 3 1,000 mg Softgel] Pyridostigmine [place] [Mestinon 180 mg PO HS 03/20/12 Timespan] Atorvastatin Calcium [Lipitor 10 10 mg PO HS 06/16/18 mg (*)] DULoxetine [Cymbalta 30 MG (*)] 30 mg PO HS 06/16/18 celeCOXIB [Celebrex (*)] 200 mg PO DAILY 06/16/18 clonIDINE [Catapres (*)] 0.1 mg PO DAILY@,06/16/18 fentaNYL [Duragesic 12 MCG Patch 12 mcg TD Q48H 06/16/18 (*)] oxyCODONE HCL [Oxycodone HCl] 5 mg PO Q6H PRN 06/16/18 tiZANidine HCL [Zanaflex] 4 mg PO HS 06/16/18 Aspirin EC [Aspirin EC 81 mg (*)] 81 mg PO DAILY #1 tab 06/17/18 Potassium Chloride Po [Potassium 20 meq PO DAILY 10 Days #10 ml 11/28/18 Chloride 20 mg/15 ml (*)] Medical Decision Making - Diagnostics EKG Interpretation: EKG shows sinus tachycardia with a rate of 139, right bundle branch block present, no acute ST T-wave changes to suggest ischemia or infarct. Impression abnormal EKG. Imaging Results: CT scan of the head shows no acute. ED Course/Re-evaluation: I evaluated patient on arrival and downgraded stroke alert. 11:[address] called in by Radiology as no acute. Oral potassium given as basic metabolic with potassium of 3.0. 1:25 p.m. Re-evaluation shows heart rate 89, blood pressure 134/89. Patient no longer with slurred speech. Feeling better and requesting to be discharged. Differential Diagnosis: Differential diagnosis includes but is not limited to CVA, TIA, multiple sclerosis flare, acute coronary syndrome, atrial flutter, electrolyte abnormality. After evaluation no specific etiology for patient's multiple complaints however suspect this is a multiple sclerosis flare. No evidence of GALA or TIA. Patient completely neurologically intact on multiple re- evaluations. Slurred speech resolved with IV rehydration. Potassium replacement initiated in the emergency department and will be maintained as outpatient. No evidence of a flutter or acute coronary syndrome. Patient also with recent stress test in June 2018 which was unremarkable. Plan is for patient to follow up closely with her neurologist whom she was post to talk to today. She is comfortable with outpatient follow-up and understands return precautions. She will continue her prednisone taper as previously prescribed. Stable for discharge. - Data Points Laboratory Results: Laboratory Results 11/28/18 10:10 11/28/18 10:10 Medications Given: Discontinued Medications Sodium Chloride (Ns) 1,000 mls @ 0 mls/hr IV ONCE ONE; Wide Open PRN Reason: Protocol Stop: 11/28/18 10:17 Last Admin: 11/28/18 10:53 Dose: 1,000 mls Potassium Chloride (Klor Packets) 20 meq PO EDNOW ONE Stop: 11/28/18 12:27 Last Admin: 11/28/18 12:33 Dose: Not Given Potassium Chloride (Klor-Con) 20 meq PO ONCE ONE Stop: 11/28/18 12:33 Last Admin: 11/28/18 12:36 Dose: 20 meq Point of Care Test Results: Chemistry 11/28/18 10:20 POC Sodium 142 mEq/L mEq/L (135-145) POC Potassium 3.0 mEq/L L mEq/L (3.3-5.0) POC Chloride 103 mEq/L mEq/L (97-110) POC Total CO2 28 mEq/L mEq/L (22-31) POC BUN 21 mg/dL mg/dL (7-23) POC Creatinine 0.9 mg/dL mg/dL (0.6-1.0) POC Glucose 112 mg/dL H mg/dL (70-100) ISTAT H&H 11/28/18 10:20 POC Hgb 17.0 gm/dL H gm/dL (12.6-16.3) POC Hct 50 % H % (38-47) Departure - Departure Disposition: Home, Routine, Self-Care Clinical Impression: Multiple sclerosis exacerbation, Hypokalemia Condition: Fair Instructions: Multiple Sclerosis (DC), Hypokalemia (ED) Additional Instructions: Follow-up with Dr. Norman as discussed. You should also take potassium supplementation once a day for the next 7 days. Have her potassium rechecked by her primary care doctor Cheryl. Return to the emergency department for any new or concerning symptoms. Referrals: Ella Luna MD [Primary Care Provider] - As per Instructions Nomi Norman MD [Medical Doctor] - As per Instructions Prescriptions: Potassium Chloride Po [Potassium Chloride 20 mg/15 ml (*)] 20 meq PO DAILY 10 Days #10 ml
[2018-11-28 14:04] VITALS: BP 128/90
--- NOTE | 2018-11-30 09:09 | CPEKG ---
Test Reason : OPEN Blood Pressure : / mmHG Vent. Rate : 139 BPM Atrial Rate : 139 BPM P-R Int : 104 ms QRS Dur : 129 ms QT Int : 404 ms P-R-T Axes : 041 056 036 degrees QTc Int : 615 ms Sinus tachycardia Right bundle branch block Confirmed by Kathy Anand ([id number]) on 11/30/2018 9:08:40 AM Referred By: Kathy Anand Confirmed By:Kathy Anand
== END 2018-11-28 14:04 | disposition home or self-care (01) ==
DX: G35 Multiple sclerosis (principal); E87.6 Hypokalemia; E86.9 Volume depletion, unspecified
CPT/HCPCS: 82435-PO; 82565-PO; 82947-PO; 84132-PO; 84295-PO; 84520-PO; 85014-ER

== ENCOUNTER 2018-12-03 17:17 | Emergency (ER) | payer OTHER | END 2018-12-03 21:18 | disposition home or self-care (01) ==